=== PATIENT | male | born 1955 | race Asian ===

== ENCOUNTER 2022-05-21 22:46 | Emergency (ER) | payer BC, OTHER ==
[~2022-05-21] VITALS: Ht 170.2 cm; Wt 99.8 kg
[2022-05-21 22:46] VITALS: BP_SYST 139
[2022-05-21] MEDS ORDERED: IBUPROFEN 600 MG TABLET PO ONE (23:00)
[2022-05-21] MEDS ORDERED: ACETAMINOPHEN 500 MG TABLET PO ONE (23:00)
[2022-05-21] MEDS ORDERED: LIDOCAINE PATCH 5% 1 EA TP ONE (23:00)
[2022-05-22 00:31] LABS: BILIRUBIN,URINE NEGATIVE (NEGATIVE); COLOR,URINE YELLOW (YELLOW); GLUCOSE,URINE NEGATIVE (NEGATIVE); KETONES,URINE NEGATIVE (NEGATIVE); LEUKOCYTE ESTERASE ,URINE NEGATIVE (NEGATIVE); NITRITE, URINE NEGATIVE (NEGATIVE); PH,URINE 7.5 (5.0-8.0); PROTEIN URINE NEGATIVE (NEGATIVE); UROBILINOGEN,URINE 0.2 (0.2-1.0)
[2022-05-22 00:44] LABS: BASOPHILS % (AUTO) 0.4 % (0.0-2.0); EOSINOPHILS # (AUTO) 0.1 K/uL (0.0-0.4); EOSINOPHILS % (AUTO) 1.1 % (0.0-4.0); HEMATOCRIT 46.1 % (36-54); HEMOGLOBIN 15.5 g/dL (14.0-18.0); LYMPHOCYTES # (AUTO) 1.1 K/uL (1.0-5.5); LYMPHOCYTES % (AUTO) 12.2 % (20.5-51.5); MEAN CORPUSCULAR HEMOGLOBIN 28 pg (27-31); MEAN CORPUSCULAR HGB CONC 34 % (32-36); MEAN CORPUSCULAR VOLUME 83 fL (79.0-98.0); MONOCYTES # (AUTO) 0.5 K/uL (0.0-1.0); MONOCYTES % (AUTO) 6.2 % (1.7-9.3); NEUTROPHILS # (AUTO) 6.9 K/uL (1.8-7.7); NEUTROPHILS % (AUTO) 80.1 % (40.0-70.0); PLATELET COUNT (AUTO) 240 K/uL (130-430); RED BLOOD CELL COUNT(AUTO) 5.54 MIL/uL (4.2-6.2); RED CELL DISTRIBUTION WIDTH 14.8 % (9.0-15.0); WHITE BLOOD COUNT (AUTO) 8.6 K/uL (4.8-10.8)
[2022-05-22 01:00] LABS: BLOOD, URINE TRACE (NEGATIVE)
[2022-05-22 01:00] LABS: CALCIUM 9.1 mg/dL (8.4-11.0); CREATININE 0.82 mg/dL (0.55-1.30)
[2022-05-22 01:01] LABS: CLARITY/URINE HAZY (CLEAR)
[2022-05-22 01:02] LABS: RBC,URINE 0-3 /HPF (0-3)
[2022-05-22 01:03] LABS: BACTERIA,URINE RARE /HPF (None Seen); MUCUS,URINE None Seen /LPF (None Seen); WBC,URINE 0-3 /HPF (0-3)
[2022-05-22 01:07] LABS: TOTAL BILIRUBIN 0.3 mg/dL (0.0-1.0)
[2022-05-22] MEDS ORDERED: ACET-2634 PO (01:38)
[2022-05-22] MEDS ORDERED: CYCL10TA24 PO (01:38)
[2022-05-22 01:45] VITALS: BP_SYST 139
== END 2022-05-22 01:45 | disposition home or self-care (01) ==
LOC: SED 22:46
DX: M54.50 Low back pain, unspecified (principal); Z79.899 Other long term (current) drug therapy
CPT/HCPCS: 36415; 80053; 81000; 85025; 99284

== ENCOUNTER 2024-02-02 21:04 | Emergency (ER) | payer OTHER ==
[~2024-02-02] VITALS: Ht 167.6 cm; Wt 88.5 kg
[~2024-02-02 21:04] MED LIST: ACET-2634 PO; CYCL10TA24 PO
[2024-02-02 21:20] VITALS: BP_SYST 113; PULSE 102; RESP 18; TEMP 96.5; O2SAT 97
[2024-02-02 22:47] LABS: BASOPHILS # (AUTO) 0.1 K/uL (0.0-0.2); BASOPHILS % (AUTO) 0.9 % (0.0-2.0); EOSINOPHILS # (AUTO) 0.1 K/uL (0.0-0.4); HEMATOCRIT 42.7 % (36-54); HEMOGLOBIN 14.6 g/dL (14.0-18.0); LYMPHOCYTES # (AUTO) 1.9 K/uL (1.0-5.5); LYMPHOCYTES % (AUTO) 24.6 % (20.5-51.5); MEAN CORPUSCULAR HEMOGLOBIN 30 pg (27-31); MEAN CORPUSCULAR HGB CONC 34 % (32-36); MEAN CORPUSCULAR VOLUME 88 fL (79.0-98.0); MONOCYTES # (AUTO) 0.7 K/uL (0.0-1.0); MONOCYTES % (AUTO) 8.6 % (1.7-9.3); NEUTROPHILS % (AUTO) 64.9 % (40.0-70.0); PLATELET COUNT (AUTO) 233 K/uL (130-430); RED BLOOD CELL COUNT(AUTO) 4.85 MIL/uL (4.2-6.2); RED CELL DISTRIBUTION WIDTH 13.2 % (9.0-15.0); WHITE BLOOD COUNT (AUTO) 7.8 K/uL (4.8-10.8)
[2024-02-02 22:56] LABS: ALBUMIN 3.6 g/dL (3.4-4.8); BILIRUBIN,DIRECT 0.1 mg/dL (0.0-0.3); CALCIUM 8.7 mg/dL (8.4-11.0); CREATININE 0.9 mg/dL (0.55-1.30); POTASSIUM 4.2 mmol/L (3.5-5.1); TOTAL BILIRUBIN 0.4 mg/dL (0.0-1.0); TOTAL PROTEIN, SERUM 6.8 g/dL (6.4-8.3)
[2024-02-03] MEDS ORDERED: MOM PO (01:44)
[2024-02-03 01:48] VITALS: BP_SYST 113; PULSE 102; RESP 18; TEMP 96.5; O2SAT 97
== END 2024-02-03 01:48 | disposition home or self-care (01) ==
LOC: SED 21:04
DX: K59.00 Constipation, unspecified (principal); Z79.899 Other long term (current) drug therapy
CPT/HCPCS: 36415; 80048; 80076; 85025; 99284